=== PATIENT | female | born 1975 | race American Indian/Alaskan Native ===

== ENCOUNTER 2017-09-10 10:22 | Emergency (ER) | payer MEDICAID, MEDICARE ==
[2017-09-10 11:38] LABS: Basophils % (Auto) 0.3 % (0.0-1.8); Eosinophils % (Auto) 4.6 % (0.0-4.3); Hematocrit 33.8 % (30.3-42.9); Mean Corpuscular HGB Conc 33 % (30-34); Mean Corpuscular Volume 77 fl (79-97); Platelet Count 437 K/mm3 (140-440); Red Blood Count 4.38 M/mm3 (3.65-5.03); Red Cell Distribution Width 18.9 % (13.2-15.2); White Blood Count 8.9 K/mm3 (4.5-11.0)
[2017-09-10 11:39] LABS: Mean Corpuscular Hemoglobin 25 pg (28-32)
[2017-09-10 11:45] LABS: Bacteria,Urine 1+ /HPF (Negative); Bilirubin,Urine NEG (Negative); Blood,Urine MOD (Negative); Ketones,Urine TR mg/dL (Negative); Leukocyte Esterase,Urine MOD (Negative); Mucus,Urine 3+ /HPF; Nitrite,Urine POS (Negative); Uric Acid Crystals,Urine FEW; Urobilinogen,Urine < 2.0 mg/dL (<2.0)
[2017-09-10 11:58] LABS: Alanine Aminotransferase 16 units/L (7-56); Albumin/Globulin Ratio 1.1 %; Alkaline Phosphatase 80 units/L (35-129); Anion Gap 17 mmol/L; BUN/Creatinine Ratio 18; Blood Urea Nitrogen 7 mg/dL (7-17); Calcium 8.9 mg/dL (8.4-10.2); Carbon Dioxide 22 mmol/L (22-30); Chloride 101.7 mmol/L (98-107); Glucose 90 mg/dL (65-100); Lipase 23 units/L (13-60); Potassium 3.1 mmol/L (3.6-5.0); Sodium 138 mmol/L (137-145); Total Protein 7.5 g/dL (6.3-8.2)
--- NOTE | 2017-09-10 23:35 | Emergency Department Report ---
ED Female HPI - General Chief complaint: Abdominal Pain Stated complaint: ABDOMINAL PAIN Time Seen by Provider: 09/10/17 23:24 Source: patient Mode of arrival: Ambulatory Limitations: No Limitations - History of Present Illness Initial comments: Patient is 42 years old female 6 para 2, 2 miscarriages and one presented with vaginal bleeding for the last 3 days and lower abdominal pain. Patient stated that her last missed her period was in June. Patient denied any nausea or vomiting. MD Complaint: vaginal bleeding -: days(s) (3 days) Quality: cramping - Related Data Allergies Allergy/AdvReac Type Severity Reaction Status Date / Time No Known Allergies Allergy Unverified 09/10/17 10:45 ED Review of Systems ROS: Stated complaint: ABDOMINAL PAIN Other details as noted in HPI Comment: All other systems reviewed and negative Constitutional: denies: chills, fever Respiratory: denies: cough, orthopnea, shortness of breath, SOB with exertion Cardiovascular: denies: chest pain, palpitations Gastrointestinal: abdominal pain. denies: nausea, vomiting, diarrhea, constipation, hematemesis Genitourinary: abnormal menses. denies: urgency, dysuria Neurological: denies: headache, weakness ED Past Medical Hx - Past Medical History Previous Medical History?: Yes Hx Asthma: Yes Additional medical history: Vaginal dleivery x 2 - Surgical History Past Surgical History?: Yes Hx Cholecystectomy: Yes Additional Surgical History: Chandu hip surgery - Social History Smoking Status: Never Smoker Substance Use Type: Alcohol ED Physical Exam - General Limitations: No Limitations General appearance: alert, in no apparent distress - Head Head exam: Present: atraumatic, normocephalic, normal inspection - Neck Neck exam: Present: normal inspection - Respiratory Respiratory exam: Present: normal lung sounds bilaterally. Absent: respiratory distress, wheezes, rales, rhonchi, stridor, chest wall tenderness, accessory muscle use, decreased breath sounds, prolonged expiratory - Cardiovascular Cardiovascular Exam: Present: regular rate, normal rhythm, normal heart sounds - GI/Abdominal GI/Abdominal exam: Present: soft, normal bowel sounds. Absent: distended, tenderness, guarding, rebound, rigid, organomegaly, mass, bruit, pulsatile mass , hernia - Extremities Exam Extremities exam: Present: normal inspection, full ROM, normal capillary refill - Back Exam Back exam: Present: normal inspection. Absent: tenderness, CVA tenderness (R), CVA tenderness (L) - Neurological Exam Neurological exam: Present: alert, oriented X3, CN II-XII intact, normal gait - Skin Skin exam: Present: warm, intact, normal color. Absent: cyanosis, diaphoretic, erythema, urticaria ED Course Vital Signs 09/10/17 09/10/17 09/10/17 10:45 18:19 22:27 Temperature 97.9 F 97.9 F Pulse Rate 74 108 H 70 Respiratory 20 14 18 Rate Blood Pressure 112/69 129/92 Blood Pressure 121/83 [Left] O2 Sat by Pulse 99 99 99 Oximetry 09/11/17 09/11/17 09/11/17 00:00 01:40 01:42 Temperature Pulse Rate 71 Respiratory 18 18 18 Rate Blood Pressure Blood Pressure 115/79 [Left] O2 Sat by Pulse 99 99 Oximetry ED Medical Decision Making - Lab Data Result diagrams: 09/10/17 11:09 09/10/17 11:09 - Radiology Data Radiology results: report reviewed FINAL REPORT EXAM: US OB TRANSVAGINAL HISTORY: ABDOMINAL PAIN COMPARISON: None available. TECHNIQUE: Several real-time grayscale and color Doppler images were obtained. Transabdominal and transvaginal exam. FINDINGS: The uterus measures 10.6 x 5.4 x 6.0 centimeters. Single live IUP. Estimated gestational age 5 weeks 6 days. Estimated delivery date May 08, 2018. heart rate 90 beats per minute. Tiny nabothian cysts within the cervix. Do station all sac is slightly low lying within the endometrial canal. Cervix is closed. At the posterior body of the uterus is a partially exophytic hypoechoic structure concerning for fibroid measuring 3.4 x 3.6 x 3.7 centimeters. The right ovary measures 1.9 x 1.8 x 1.7 centimeters. Left ovary measures 2.5 x 1.3 x 2.6 centimeters. Within the right ovary there is a 1.9 centimeter cystic structure which could reflect corpus luteal cyst. No adnexal masses are demonstrated. IMPRESSION: Single live IUP. Estimated gestational age 5 weeks 6 days. Estimated delivery date May 08, 2018. Gestational sac is slightly low lying within the endometrial canal but is otherwise unremarkable. Hypoechoic structure at the posterior margin the uterus concerning for fibroid measuring 3.7 centimeters. 1.9 centimeter right ovarian cystic structure which may reflect corpus luteum. No adnexal masses are demonstrated. Transcribed By: LMA Dictated By: MAGDALENO LEE MD Electronically Authenticated By: MAGDALENO LEE MD Signed Date/Time: 09/10/172135 DD/ 35 TD/TT: 09/10/172135 Critical care attestation.: If time is entered above; I have spent that time in minutes in the direct care of this critically ill patient, excluding procedure time. ED Disposition Clinical Impression: Abdominal pain affecting , Vaginal bleeding during , antepartum, UTI in Disposition: -01 TO HOME OR SELFCARE Is pt being admited?: No Condition: Stable Instructions: Abdominal Pain (ED), (ED), Urinary Tract Infection in Women (ED) Referrals: PRIMARY CARE, [Primary Care Provider] - 3-5 Days
[2017-09-11] MEDS ORDERED: TYLENOL PO ONE (01:30)
[2017-09-11] MEDS ORDERED: TYLENOL ONE (01:36)
--- NOTE | 2017-09-11 01:39 | Ultrasound Report ---
FINAL REPORT EXAM: US OB < = 14 WEEKS FETUS HISTORY: ABDOMINAL PAIN COMPARISON: None available. TECHNIQUE: Several real-time grayscale and color Doppler images were obtained. Transabdominal and transvaginal exam. FINDINGS: The uterus measures 10.6 x 5.4 x 6.0 centimeters. Single live IUP. Estimated gestational age 5 weeks 6 days. Estimated delivery date May 08, 2018. heart rate 90 beats per minute. Tiny nabothian cysts within the cervix. Do station all sac is slightly low lying within the endometrial canal. Cervix is closed. At the posterior body of the uterus is a partially exophytic hypoechoic structure concerning for fibroid measuring 3.4 x 3.6 x 3.7 centimeters. The right ovary measures 1.9 x 1.8 x 1.7 centimeters. Left ovary measures 2.5 x 1.3 x 2.6 centimeters. Within the right ovary there is a 1.9 centimeter cystic structure which could reflect corpus luteal cyst. No adnexal masses are demonstrated. IMPRESSION: Single live IUP. Estimated gestational age 5 weeks 6 days. Estimated delivery date May 08, 2018. Gestational sac is slightly low lying within the endometrial canal but is otherwise unremarkable. Hypoechoic structure at the posterior margin the uterus concerning for fibroid measuring 3.7 centimeters. 1.9 centimeter right ovarian cystic structure which may reflect corpus luteum. No adnexal masses are demonstrated.
[2017-09-11 01:44] VITALS: BP 115/79
== END 2017-09-11 02:36 | disposition home or self-care (01) ==
LOC: ED 10:22
DX: O23.41 Unspecified infection of urinary tract in pregnancy, first trimester (principal); Z3A.01 Less than 8 weeks gestation of pregnancy; O20.9 Hemorrhage in early pregnancy, unspecified; R10.30 Lower abdominal pain, unspecified; J45.909 Unspecified asthma, uncomplicated
CPT/HCPCS: 36415; 76801; 76817; 80053; 81001; 83690; 84702; 84703; 85025

== ENCOUNTER 2021-09-28 02:18 | Emergency (ER) | payer MEDICARE, MEDICAID ==
[2021-09-28 03:13] LABS: Basophils # (Auto) 0.1 K/mm3 (0.0-0.1); Basophils % (Auto) 0.8 % (0.0-1.8); Eosinophils # (Auto) 0.2 K/mm3 (0.0-0.4); Eosinophils % (Auto) 3.3 % (0.0-4.3); Hematocrit 39.8 % (30.3-42.9); Hemoglobin 13.1 gm/dl (10.1-14.3); Lymphocytes # (Auto) 2.9 K/mm3 (1.2-5.4); Lymphocytes % (Auto) 43.7 % (13.4-35.0); Mean Corpuscular HGB Conc 33 % (30-34); Mean Corpuscular Volume 91 fl (79-97); Monocytes # (Auto) 0.5 K/mm3 (0.0-0.8); Monocytes % (Auto) 7.7 % (0.0-7.3); Platelet Count 321 K/mm3 (140-440); Red Blood Count 4.38 M/mm3 (3.65-5.03)
[2021-09-28 03:21] LABS: Alanine Aminotransferase 35 units/L (7-56); Blood Urea Nitrogen 12 mg/dL (7-17); Calcium 9.4 mg/dL (8.4-10.2); Hemolysis Index 3
[2021-09-28 03:22] LABS: BUN/Creatinine Ratio 20
--- NOTE | 2021-09-28 05:58 | Ultrasound Report ---
ULTRASOUND OBSTETRIC INDICATION: VAGINAL BLEEDING. TECHNIQUE: Transabdominal and Transvaginal. COMPARISON: None available. FINDINGS: GESTATIONAL SAC: Well-defined oval shape and intrauterine in location. Mean sac diameter is 2.2 cm, c onsistent with an estimated age of 7 weeks 1 day. YOLK SAC: None seen. EMBRYO/FETUS: None seen. ADNEXA: No significant abnormality of the right ovary. The left ovary is not seen. FREE FLUID: None. ADDITIONAL FINDINGS: A nabothian cyst is seen along the cervix. IMPRESSION: 1. Intrauterine gestational sac as above without visualization of a pole, likely indicating rafy led . Please correlate with the clinical findings. Signer Name: Rashad Gonzales MD Signed: 09/28/2021 5:54 AM Workstation Name: [id number]
--- NOTE | 2021-09-28 07:42 | Emergency Department Report ---
ED General Adult HPI - General Chief complaint: Vaginal Bleeding Stated complaint: 7WEEKS PREG AND BLEEDING Source: patient Mode of arrival: Ambulatory Limitations: No Limitations - History of Present Illness Initial comments: 46 yo AA F pt presents with complaints of vaginal bleeding in . Pt has hx of asthma. A4. No current OBGYN. She reports the vaginal bleeding began yesterday and that she passed several large clots. Patient denies any pain at current and states the bleeding has significantly slowed and is barely there at current. She denies any other complaints. She also denies any dysuria/hematuria/urinary frequency, vaginal discharge/dyspareunia, or fever/chills/sweats. - Related Data Previous Rx's Medication Instructions Recorded Last Taken Type Nitrofurantoin Gooding/M-Cryst 100 mg PO Q12HR #14 capsule 09/11/17 Unknown Rx [Macrobid CAP] Allergies Allergy/AdvReac Type Severity Reaction Status Date / Time No Known Allergies Allergy Unverified 09/10/17 10:45 ED Review of Systems ROS: Stated complaint: 7WEEKS PREG AND BLEEDING Other details as noted in HPI Constitutional: denies: chills, fever, malaise Respiratory: denies: shortness of breath Gastrointestinal: as per HPI Genitourinary: as per HPI Musculoskeletal: denies: back pain Neurological: denies: headache ED Past Medical Hx - Past Medical History Previous Medical History?: Yes Hx Asthma: Yes Additional medical history: Vaginal dleivery x 2 - Surgical History Past Surgical History?: Yes Hx Cholecystectomy: Yes Additional Surgical History: Chandu hip surgery - Social History Smoking Status: Never Smoker Substance Use Type: Alcohol - Medications Home Medications: Home Medications Medication Instructions Recorded Confirmed Last Taken Type Nitrofurantoin Gooding/M-Cryst 100 mg PO Q12HR #14 capsule 09/11/17 Unknown Rx [Macrobid CAP] ED Physical Exam - General Limitations: No Limitations General appearance: alert, in no apparent distress, obese - Head Head exam: Present: atraumatic, normocephalic - Eye Eye exam: Present: normal appearance - Respiratory Respiratory exam: Absent: respiratory distress - Cardiovascular Cardiovascular Exam: Present: regular rate, normal rhythm - GI/Abdominal GI/Abdominal exam: Present: soft. Absent: distended, tenderness, guarding, rebound, rigid - Neurological Exam Neurological exam: Present: alert, oriented X3 - Psychiatric Psychiatric exam: Present: normal affect, normal mood - Skin Skin exam: Present: warm, dry, intact, normal color. Absent: rash ED Course Vital Signs 09/28/21 09/28/21 02:20 07:46 Temperature 98.1 F Pulse Rate 76 84 Respiratory 16 15 Rate Blood Pressure 146/83 Blood Pressure 130/82 [Right] O2 Sat by Pulse 90 99 Oximetry ED Medical Decision Making - Lab Data Result diagrams: 09/28/21 02:30 09/28/21 02:30 Lab Results 09/28/21 09/28/21 09/28/21 Range/Units 02:30 02:30 02:30 WBC 6.7 (4.5-11.0) K/mm3 RBC 4.38 (3.65-5.03) M/mm3 Hgb 13.1 (10.1-14.3) gm/dl Hct 39.8 (30.3-42.9) % MCV 91 (79-97) fl MCH 30 (28-32) pg MCHC 33 (30-34) % RDW 13.0 L (13.2-15.2) % Plt Count 321 (140-440) K/mm3 Lymph % (Auto) 43.7 H (13.4-35.0) % Gooding % (Auto) 7.7 H (0.0-7.3) % Eos % (Auto) 3.3 (0.0-4.3) % Baso % (Auto) 0.8 (0.0-1.8) % Lymph # (Auto) 2.9 (1.2-5.4) K/mm3 Gooding # (Auto) 0.5 (0.0-0.8) K/mm3 Eos # (Auto) 0.2 (0.0-0.4) K/mm3 Baso # (Auto) 0.1 (0.0-0.1) K/mm3 Seg Neutrophils % 44.5 (40.0-70.0) % Seg Neutrophils # 3.0 (1.8-7.7) K/mm3 Sodium (137-145) mmol/L Potassium (3.6-5.0) mmol/L Chloride (98-107) mmol/L Carbon Dioxide (22-30) mmol/L Anion Gap mmol/L BUN (7-17) mg/dL Creatinine (0.6-1.2) mg/dL Estimated GFR ml/min BUN/Creatinine Ratio % Glucose (65-100) mg/dL Calcium (8.4-10.2) mg/dL Total Bilirubin (0.1-1.2) mg/dL AST (5-40) units/L ALT (7-56) units/L Alkaline Phosphatase (35-129) units/L Total Protein (6.3-8.2) g/dL Albumin (3.9-5) g/dL Albumin/Globulin Ratio % HCG, Quant 26.44 H (0-4) mIU/mL Blood Type B POSITIVE 09/28/21 Range/Units 02:30 WBC (4.5-11.0) K/mm3 RBC (3.65-5.03) M/mm3 Hgb (10.1-14.3) gm/dl Hct (30.3-42.9) % MCV (79-97) fl MCH (28-32) pg MCHC (30-34) % RDW (13.2-15.2) % Plt Count (140-440) K/mm3 Lymph % (Auto) (13.4-35.0) % Gooding % (Auto) (0.0-7.3) % Eos % (Auto) (0.0-4.3) % Baso % (Auto) (0.0-1.8) % Lymph # (Auto) (1.2-5.4) K/mm3 Gooding # (Auto) (0.0-0.8) K/mm3 Eos # (Auto) (0.0-0.4) K/mm3 Baso # (Auto) (0.0-0.1) K/mm3 Seg Neutrophils % (40.0-70.0) % Seg Neutrophils # (1.8-7.7) K/mm3 Sodium 136 L (137-145) mmol/L Potassium 3.8 (3.6-5.0) mmol/L Chloride 101.2 (98-107) mmol/L Carbon Dioxide 23 (22-30) mmol/L Anion Gap 16 mmol/L BUN 12 (7-17) mg/dL Creatinine 0.6 (0.6-1.2) mg/dL Estimated GFR > 60 ml/min BUN/Creatinine Ratio 20 % Glucose 109 H (65-100) mg/dL Calcium 9.4 (8.4-10.2) mg/dL Total Bilirubin 0.40 (0.1-1.2) mg/dL AST 22 (5-40) units/L ALT 35 (7-56) units/L Alkaline Phosphatase 92 (35-129) units/L Total Protein 7.6 (6.3-8.2) g/dL Albumin 4.0 (3.9-5) g/dL Albumin/Globulin Ratio 1.1 % HCG, Quant (0-4) mIU/mL Blood Type - Radiology Data Radiology results: report reviewed ULTRASOUND OBSTETRIC INDICATION: VAGINAL BLEEDING. TECHNIQUE: Transabdominal and Transvaginal. COMPARISON: None available. FINDINGS: GESTATIONAL SAC: Well-defined oval shape and intrauterine in location. Mean sac diameter is 2.2 cm, consistent with an estimated age of 7 weeks 1 day. YOLK SAC: None seen. EMBRYO/FETUS: None seen. ADNEXA: No significant abnormality of the right ovary. The left ovary is not seen. FREE FLUID: None. ADDITIONAL FINDINGS: A nabothian cyst is seen along the cervix. IMPRESSION: 1. Intrauterine gestational sac as above without visualization of a pole, likely indicating failed . Please correlate with the clinical findings. Signer Name: Rashad Gonzales MD - Medical Decision Making 46 yo AA F pt presents with complaints of vaginal bleeding in . Pt has hx of asthma. A4. No current OBGYN. She reports the vaginal bleeding began yesterday and that she passed several large clots. Patient denies any pain at current and states the bleeding has significantly slowed and is barely there at current. She denies any other complaints. She also denies any dysuria/hematuria/urinary frequency, vaginal discharge/dyspareunia, or fever/chills/sweats. Beta-hCG is 46. Ultrasound shows the following impressiom: Intrauterine gestational sac as above without visualization of a pole, likely indicating failed . Please correlate with the clinical findings. Patient states beta hCG yesterday was 400. Findings consistent with likely miscarriage. Given gestational sac is still present, do recommend patient follows up with OB within 3 to 5 days, referrals provided. Pulse ox rechecked by this provider and is 99% on room air. She is well-appearing, her vitals are within normal limits, she is stable for discharge home. Discussed signs and symptoms that should prompt immediate return to the ED with patient who verbalizes understanding Critical care attestation.: If time is entered above; I have spent that time in minutes in the direct care of this critically ill patient, excluding procedure time. ED Disposition Clinical Impression: Miscarriage Disposition: 01 HOME / SELF CARE / HOMELESS Is pt being admited?: No Condition: Stable Instructions: Miscarriage Referrals: [facility] [Provider Group] - 3-5 Days [facility] [Provider Group] - 3-5 Days [facility] [Provider Group] - 3-5 Days Forms: Work/School Release Form(ED)
[2021-09-28 07:47] VITALS: BP 130/82
== END 2021-09-28 07:47 | disposition home or self-care (01) ==
LOC: ED 02:18
DX: O03.9 Complete or unspecified spontaneous abortion without complication (principal); Z3A.01 Less than 8 weeks gestation of pregnancy; O99.511 Diseases of the respiratory system complicating pregnancy, first trimester; J45.909 Unspecified asthma, uncomplicated; Z90.49 Acquired absence of other specified parts of digestive tract; Z79.899 Other long term (current) drug therapy
CPT/HCPCS: 36415; 76817; 80053; 84702; 85025; 86900; 86901; 99284